=== PATIENT | male | born 1980 | race Caucasian/White ===

== ENCOUNTER 2022-09-01 10:57 | Emergency (ER) | payer OTHER, SELFPAY ==
--- NOTE | 2022-09-01 10:58 | ED.EYEPROB ---
HPI - Eye Problem General Stated complaint: FB in right eye Time Seen by Provider: 09/01/22 10:58 Source: patient and RN notes reviewed History of Present Illness HPI Narrative: Patient is a 42-year-old male who presents the urgent care with complaints of possible foreign body in the right eye. Patient states that 9 days ago he was sanding and believes he may have particle in the eye. Patient states he is flushed last used eyewash several times since then. Patient does not wear glasses or contacts and did not have glasses on during the incident. Patient denies any changes in vision. States that the light is bothersome to the eye. Reports of redness and clear drainage. No other acute complaints. No acute distress noted. Patient aware of the plan of care. Some parts of this dictation were generated by voice recognition software and may contain typographical and/or grammatical inaccuracies. Related Data Allergies Allergy/AdvReac Type Severity Reaction Status Date / Time No Known Allergies Allergy Verified 09/01/22 11:17 Review of Systems Review of Systems: CONSTITUTIONAL: Denies fever, chills, or sweats. EYES: Reports of redness and irritation to the right eye ENT: Denies rhinorrhea, congestion, sore throat, or otalgia. CARDIOVASCULAR: Denies chest pain, palpitations, or edema. RESPIRATORY: Denies cough or dyspnea. GASTROINTESTINAL: Denies abdominal pain, nausea, vomiting, or diarrhea. GENITOURINARY: Denies dysuria or hematuria. SKIN: Denies rash or itching. MUSCULOSKELETAL: Denies back pain, joint pain, or myalgia. NEUROLOGIC: Denies headache, numbness, or weakness. All other systems reviewed are negative, except as documented in HPI. PMFSH Comments At the time of my signature, I reviewed and agree with the nursing past medical, surgical, social, and family history. There is no relevant family history pertinent to the patient complaint. Exam Narrative: GENERAL: This is a well-nourished, well-developed patient, in no apparent distress. HEAD: normocephalic, atraumatic. EYES: PERRL. Injected sclera/conjunctiva to the right with clear drainage. Left eye within normal limits. EARS: External ears normal NOSE: External nose normal with no obvious nasal discharge, nares without redness, no rhinorrhea. THROAT: Mucous membranes moist NECK: Neck supple SKIN: warm, intact with no suspicious lesions or rash, good texture and turgor. NEURO: awake, alert, and oriented to person, place and time. There were no obvious focal neurologic abnormalities. EXTREMITIES: No clubbing, cyanosis, or edema. Course Course Level of Care: Express Care Visit Vital Signs Vital signs: Vital Signs Temperature 98.4 F 09/01/22 11:04 Pulse Rate 94 09/01/22 11:04 Respiratory Rate 16 09/01/22 11:04 Blood Pressure 137/85 09/01/22 11:04 Pulse Oximetry 100 09/01/22 11:04 Oxygen Delivery Room Air 09/01/22 11:04 Temperature 98.4 F 09/01/22 11:04 Pulse Rate 94 09/01/22 11:04 Respiratory Rate 16 09/01/22 11:04 Blood Pressure 137/85 09/01/22 11:04 Pulse Oximetry 100 09/01/22 11:04 Oxygen Delivery Room Air 09/01/22 11:04 Reviewed Procedures FB Removal Eye Foreign Body #1: Location: eye (R) Topical anesthetic used: tetracaine Foreign body: other (Unknown) Evidence of corneal penetration: No Technique: irrigation, eye wash bottle and cotton tip swab Procedure performed under: direct visualization with magnification Post-procedure medication: topical anesthetic Patient tolerated procedure: well and no complications Foreign Body Removal Narrative: Topical anesthetic was instilled with good anesthesia using 2gtt of opth anesthetic agent (tetracaine). Fluorescein stain of the R eye was performed without uptake of dye. No epithelial defect was noted. black speck FB viewed and removed with cotton swab tip. no ulcer or dendritic lesions. NO Ash sign. Normal saline
[2022-09-01 11:04] VITALS: BP 137/85; PULSE 94; RESP 16; TEMP 36.9; O2SAT 100
== END 2022-09-01 11:30 | disposition home or self-care (01) ==
PROVIDERS: Emergency Provider Nurse Practitioner Family
DX: T15.91XA Foreign body on external eye, part unspecified, right eye, initial encounter (principal); S05.01XA Injury of conjunctiva and corneal abrasion without foreign body, right eye, initial encounter; X58.XXXA Exposure to other specified factors, initial encounter
CPT/HCPCS: 65205; 99213; A9270; G0463